=== PATIENT | female | born 1985 | race Caucasian/White ===

== ENCOUNTER 2018-01-25 12:35 | Observation (INO) | payer OTHER ==
[~2018-01-25] VITALS: Ht 152.4 cm; Wt 90.7 kg
[2018-01-25] MEDS ORDERED: CALC-1038 PO (12:44)
[2018-01-25] MEDS ORDERED: PREN1TAB80 PO (12:44)
== END 2018-01-25 14:25 | disposition home or self-care (01) ==
LOC: 4S 12:35
PROVIDERS: ADMIT Obstetrics & Gynecology; ATTEND Obstetrics & Gynecology
DX: Z34.83 Encounter for supervision of other normal pregnancy, third trimester (principal); Z3A.39 39 weeks gestation of pregnancy
CPT/HCPCS: 59025; 76805; G0378

== ENCOUNTER 2018-01-30 09:11 | Inpatient (IN) | payer OTHER ==
[~2018-01-30] VITALS: Ht 152.4 cm; Wt 89.8 kg
[~2018-01-30 09:11] MED LIST: CALC-1038 PO; PREN1TAB80 PO
[2018-01-30 09:42] VITALS: BP 128/66
[2018-01-30] MEDS ORDERED: RINGERS SOLUTION,LACTATED 1,000 ML IV PRN (09:51)
[2018-01-30] MEDS ORDERED: CITRIC ACID/SODIUM CITRATE 30 ML SOLUTION UDCUP PO PRN (10:00)
[2018-01-30] MEDS ORDERED: LIDOCAINE/PF 1% 30 ML VIAL INJ PRN (10:00)
[2018-01-30] MEDS ORDERED: METHYLERGONOVINE MALEATE 0.2 MG/ML VIAL IM PRN (10:00)
[2018-01-30] MEDS ORDERED: OXYGEN THERAPY IH SCH (10:00)
[2018-01-30] MEDS ORDERED: METOCLOPRAMIDE HCL 5 MG/ML 2 ML VIAL IVP PRN (10:00)
[2018-01-30] MEDS: RINGERS SOLUTION,LACTATED 1,000 ML IV SCH ×2 (10:16→15:10)
[2018-01-30 10:26] LABS: BASOPHILS % (AUTO) 0.7 % (0.0-2.0); EOSINOPHILS % (AUTO) 0.4 % (1.0-6.0); HEMATOCRIT 34.3 % (36-46); LYMPHOCYTES # (AUTO) 1.5 K/uL (1.0-4.8); LYMPHOCYTES % (AUTO) 18.3 % (22.0-44.0); MEAN CORPUSCULAR HEMOGLOBIN 30.3 pg (26.0-34.0); MEAN CORPUSCULAR VOLUME 87 fL (80-100); MONOCYTES # (AUTO) 0.4 K/uL (0.1-1.0); MONOCYTES % (AUTO) 5.2 % (2.0-9.0); NEUTROPHILS # (AUTO) 6.3 K/uL (1.8-7.7); NEUTROPHILS % (AUTO) 75.4 % (40.0-70.0); PLATELET COUNT (AUTO)-OB 193 K/uL (150-450); RED BLOOD CELL COUNT(AUTO) 3.96 MIL/uL (4.00-5.20); RED CELL DISTRIBUTION WIDTH 13.4 % (11.5-14.5)
[2018-01-30] MEDS ORDERED: OXYTOCIN 30 UNITS/LACT RINGERS 500 ML IV ONE (10:48)
[2018-01-30] MEDS ORDERED: AMPICILLIN SODIUM 2 GM/NS 100 ML IV ONE (11:00)
[2018-01-30] MEDS ORDERED: AMPICILLIN SODIUM 1 GM/NS 50 ML IV SCH (15:00)
[2018-01-30] MEDS ORDERED: OXYTOCIN 30 UNITS/LACT RINGERS 500 ML IV PRN (15:03)
[2018-01-30] MEDS ORDERED: ROPIVACAINE HCL/PF 0.2% 100 ML ED ONE (15:28)
[2018-01-30] MEDS ORDERED: ROPIVACAINE HCL/PF 0.2% 100 ML ED PRN (15:54)
[2018-01-30] MEDS ORDERED: ONDANSETRON HCL 4 MG/2 ML VIAL IVP PRN (16:00)
[2018-01-30] MEDS ORDERED: DiphenhydrAMINE HCL 50 MG/ML VIAL IVP PRN (16:00)
[2018-01-30] MEDS ORDERED: RINGERS SOLUTION,LACTATED 1,000 ML IV ONE (18:03)
[2018-01-30] MEDS ORDERED: BENZOCAINE 20%/MENTHOL 56 GM SPRAY CANISTER TP PRN (18:15)
[2018-01-30] MEDS ORDERED: GLYCERIN/WITCH HAZEL LEAF 40 PADS JAR TP PRN (18:15)
[2018-01-30] MEDS ORDERED: OxyCODONE HCL/ACETAMINOPHEN 5-325 MG TABLET PO PRN ×2 (18:15)
[2018-01-30] MEDS ORDERED: MEASLES/MUMPS/RUBELLA VACCINE, LIVE 0.5 ML/VIAL SQ ONE (18:15)
[2018-01-30] MEDS ORDERED: IBUPROFEN 600 MG TABLET PO PRN (18:15)
[2018-01-30] MEDS ORDERED: LANOLIN 7 GM OINTMENT TP PRN (18:15)
[2018-01-30 20:28] VITALS: BP 117/61
[2018-01-30] MEDS: MAGNESIUM HYDROXIDE SUSPENSION 30 ML UDCUP PO SCH (22:45)
[2018-01-31] MEDS: MAGNESIUM HYDROXIDE SUSPENSION 30 ML UDCUP PO SCH (08:46)
[2018-01-31] MEDS ORDERED: IBUP-2071 PO (09:55)
[2018-01-31] MEDS ORDERED: DSS100 PO (09:56)
== END 2018-01-31 18:05 | disposition home or self-care (01) | DRG 807 ==
LOC: 4S 09:11 → OBSVTOIN 09:11
PROVIDERS: ADMIT Obstetrics & Gynecology; ATTEND Obstetrics & Gynecology
PROC: 10D07Z6 Extraction of Products of Conception, Vacuum, Via Natural or Artificial Opening (ICD-10-PCS; 2018-01-30)
PROC: 10907ZC Drainage of Amniotic Fluid, Therapeutic from Products of Conception, Via Natural or Artificial Opening (ICD-10-PCS; 2018-01-30)
PROC: 3E0R3BZ Introduction of Anesthetic Agent into Spinal Canal, Percutaneous Approach (ICD-10-PCS; 2018-01-30)
PROC: 00HU33Z Insertion of Infusion Device into Spinal Canal, Percutaneous Approach (ICD-10-PCS; 2018-01-30)
PROC: 3E0234Z Introduction of Serum, Toxoid and Vaccine into Muscle, Percutaneous Approach (ICD-10-PCS; principal; 2018-01-31)
DX: O69.81X0 Labor and delivery complicated by cord around neck, without compression, not applicable or unspecified (principal); Z37.0 Single live birth; O76 Abnormality in fetal heart rate and rhythm complicating labor and delivery; O77.0 Labor and delivery complicated by meconium in amniotic fluid; O48.0 Post-term pregnancy; Z23 Encounter for immunization; Z3A.40 40 weeks gestation of pregnancy
CPT/HCPCS: 86850; 86900; 86901; 90707; J0290; J2590; J2795; J7120